=== PATIENT | female | born 1940 | race Caucasian/White ===

== ENCOUNTER 2021-05-31 16:35 | Inpatient (IN) | payer MEDICARE, BC ==
[~2021-05-31] VITALS: Ht 162.6 cm; Wt 70.3 kg
--- NOTE | 2021-05-31 16:36 | NUR ---
TO ER BED 9, BIBRA 99 from home c/o chest pressure started 1230pm today, non-radiating, non-provoke, pressure relieved from nitro upon arrival, aaox3, breathing even and non labored, connected to monitor
[2021-05-31] MEDS ORDERED: MULT-479 PO (17:34)
[2021-05-31] MEDS ORDERED: THIAZIDE (17:34)
[2021-05-31] MEDS ORDERED: COZAAR (17:34)
[2021-05-31] MEDS ORDERED: MULT-1160 PO (17:34)
[2021-05-31 17:38] LABS: BASOPHILS # (AUTO) 0.1 K/uL (0.0-0.2); BASOPHILS % (AUTO) 0.8 % (0.0-2.0); EOSINOPHILS % (AUTO) 15.7 % (0.0-6.0); HEMATOCRIT 40 % (33-45); HEMOGLOBIN 13.3 g/dL (11.5-14.8); LYMPHOCYTES # (AUTO) 1.3 K/uL (0.8-4.8); LYMPHOCYTES % (AUTO) 14.6 % (20.0-44.0); MEAN CORPUSCULAR HGB CONC 33 g/dl (31.0-36.0); MEAN CORPUSCULAR VOLUME 89 fL (82-100); MONOCYTES # (AUTO) 0.8 K/uL (0.1-1.30); MONOCYTES % (AUTO) 9.2 % (2.0-12.0); NEUTROPHILS # (AUTO) 5.5 K/uL (1.8-8.9); NEUTROPHILS % (AUTO) 59.7 % (43.0-81.0); PLATELET COUNT (AUTO) 285 K/uL (150-450); RED BLOOD CELL COUNT(AUTO) 4.46 MIL/uL (4.0-5.2); WHITE BLOOD COUNT (AUTO) 9.2 K/uL (4.3-11.0)
--- NOTE | 2021-05-31 17:52 | NUR ---
COVID SWAB DONE AND SENT TO LAB
[2021-05-31 17:57] LABS: CALCIUM, SERUM 9.5 mg/dL (8.5-10.1); CARBON DIOXIDE 31 mmol/L (21-32); CHLORIDE 102 mmol/L (98-107); CREATININE 1.3 mg/dL (0.6-1.3); GLUCOSE 102 mg/dL (74-106); POTASSIUM 3.5 mmol/L (3.5-5.1); SODIUM SERUM 137 mmol/L (136-145); UREA NITROGEN, BLOOD 25 mg/dL (7-18)
--- NOTE | 2021-05-31 19:37 | NUR ---
EPIC PANEL PAGED
[2021-05-31] MEDS ORDERED: hydrALAZINE HCL IV 20 MG VIAL IV PRN (20:00)
[2021-05-31] MEDS ORDERED: MORPHINE SULFATE INJ 2 MG/ML DISP.SYRIN IV PRN (20:00)
[2021-05-31] MEDS ORDERED: ONDANSETRON HCL/PF 4 MG/2 ML VIAL IVP PRN (20:00)
[2021-05-31] MEDS ORDERED: ACETAMINOPHEN 325 MG TABLET PO PRN (20:00)
--- NOTE | 2021-05-31 21:56 | NUR ---
REPORT GIVEN TO GORDY LEVI
--- NOTE | 2021-05-31 22:39 | NUR ---
PATIENT TRANSFERRED UNDER ACLS
[2021-05-31] MEDS: HEPARIN SODIUM, PORCINE 5000 UNITS/1 ML VIAL SQ SCH (23:14)
[2021-06-01] VITALS: BP 110/65
[2021-06-01 00:45] VITALS: BP 110/65
--- NOTE | 2021-06-01 00:49 | NUR ---
LIVE STUDY MANAGERPERSONNEL TECHNICIAN NOTES PATIENT BROUGHT UP IN THE UNIT @2249 VIA STRETCHER, ACCOMPANIED BY 1 ER PERSONNEL. PT. A/OX4 AND AMBULATES WITH STEADY GAIT. NO S/S OF APPARENT DISTRESS IN ROOM AIR. DENIES CHEST PAIN AT THIS TIME. TELE MONITOR READING SR 80 BPM WITH A LOT OF ARTIFACTS-- PATIENT IN USE OF CELLPHONE. PATIENT WISHES TO SPEAK WITH SS/SW AND DOCTOR REGARDING ADVANCED DIRECTIVE-- FULL CODE FOR NOW, PATIENT AWARE AND ACKNOWLEDGED, PER PATIENT SHE NEEDS MORE TIME TO THINK ABOUT IT AND IS IN AND OUT OF HOSPITAL BUT WAS NEVER ASKED ABOUT LIFE CHOICES. HEPARIN 5,000 UNIT SQ GIVEN. SPORTS BETTING MANAGER DR. SHIELDS TALKED WITH PATIENT AND EXPLAINED RISK AND BENEFITS TO PATIENT SINCE PATIENT ASKED AND PER PATIENT HAS NOT TAKEN ANY BLOOD THINNERS BEFORE. NO ASA GIVEN IN ER. PATIENT IS UP TO DATE WITH IMMUNIZATION INCLUDING MODERNA BOOSTER. PATIENT DENIES SMOKING AND QUIT LONG TIME AGO. OCCASIONALLY DRINKS WINE. BELONGINGS INVENTORIED AND CHECK WITH CORE SHAPER, SIGNED AND CHARTED. ALL NEEDS ATTENDED AT THIS TIME. R.HAND #20G AND L. AC #20G IN SALINE LOCK FOR NOW. STRONGLY ENCOURAGED WITH THE USE OF CALL LIGHT. V/S FOLLOWS: 110/65, 80 BPM, RR- 19, T- 98.7, AND SATURATION 96% IN ROOM AIR. WILL CONTINUE TO MONITOR AND FOLLOW THROUGH DOCTOR'S ORDERS.
[2021-06-01 04:34] VITALS: BP 95/46
[2021-06-01 06:15] LABS: BASOPHILS # (AUTO) 0.1 K/uL (0.0-0.2); BASOPHILS % (AUTO) 0.7 % (0.0-2.0); EOSINOPHILS % (AUTO) 21.1 % (0.0-6.0); HEMATOCRIT 40 % (33-45); HEMOGLOBIN 13.2 g/dL (11.5-14.8); LYMPHOCYTES # (AUTO) 1.3 K/uL (0.8-4.8); LYMPHOCYTES % (AUTO) 17.7 % (20.0-44.0); MEAN CORPUSCULAR HGB CONC 34 g/dl (31.0-36.0); MEAN CORPUSCULAR VOLUME 89 fL (82-100); MONOCYTES # (AUTO) 0.8 K/uL (0.1-1.30); MONOCYTES % (AUTO) 10.5 % (2.0-12.0); NEUTROPHILS # (AUTO) 3.6 K/uL (1.8-8.9); PLATELET COUNT (AUTO) 255 K/uL (150-450); RED BLOOD CELL COUNT(AUTO) 4.42 MIL/uL (4.0-5.2); WHITE BLOOD COUNT (AUTO) 7.2 K/uL (4.3-11.0)
[2021-06-01 06:18] LABS: ALBUMIN 2.9 g/dL (3.4-5.0); BILIRUBIN,TOTAL 0.5 mg/dL (0.2-1.0); CALCIUM, SERUM 9.3 mg/dL (8.5-10.1); CREATININE 1.2 mg/dL (0.6-1.3); MAGNESIUM 2.1 mg/dL (1.8-2.4); PHOSPHORUS 3.6 mg/dL (2.5-4.9); POTASSIUM 3.8 mmol/L (3.5-5.1); TOTAL PROTEIN, SERUM 6.6 g/dL (6.4-8.2)
--- NOTE | 2021-06-01 07:35 | NUR ---
ms rn received on bed, awake,alert,oriented x4,not in any form of distress, respiration even and unlabored,no sob noted, deneis pain at this time,all needs attended.
[2021-06-01 08:00] VITALS: BP_SYST 100; BP_SYST 138; BP_DIAS 59; BP_DIAS 74
[2021-06-01] MEDS ORDERED: TRIA1CAP20 PO (08:17)
[2021-06-01] MEDS ORDERED: LOSA50TA39 PO (08:17)
[2021-06-01 09:00] LABS: EOSINOPHILS % (MANUAL) 15 % (0-4); LYMPHOCYTES % (MANUAL) 13 % (16-48); MONOCYTES % (MANUAL) 12 % (0-11.0); NEUTROPHILS % (MANUAL) 60 (42-76)
[2021-06-01] MEDS ORDERED: MULTIVITAMIN/LUTEIN/MINERALS 1 TAB PO SCH (09:00)
[2021-06-01] MEDS ORDERED: Medication Not On Formulary EA (Multivits-Min/Iron/FA/Lutein (Centrum Silver Women Table PO SCH (09:00)
[2021-06-01] MEDS ORDERED: LOSARTAN POTASSIUM 50 MG TABLET PO SCH (09:00)
[2021-06-01] MEDS ORDERED: CARVEDILOL 3.125 MG TABLET PO SCH (09:00)
[2021-06-01] MEDS ORDERED: ASPIRIN 81 MG TAB.CHEW PO SCH (09:00)
[2021-06-01] MEDS ORDERED: ATORVASTATIN 10 MG TABLET PO SCH (09:00)
[2021-06-01] MEDS ORDERED: LOSARTAN POTASSIUM 25 MG TABLET PO SCH (09:00)
--- NOTE | 2021-06-01 09:00 | NUR ---
ms lynch breakfast served,due meds given tolerated well.
[2021-06-01 09:18] LABS: CHOLESTEROL 177 mg/dL (<200); HDL CHOLESTEROL 68 mg/dL (40-60); LDL 95 mg/dL (0-99); TRIGLYCERIDES 66 mg/dL (30-150)
[2021-06-01 10:17] VITALS: BP 138/74
[2021-06-01] MEDS: HEPARIN SODIUM, PORCINE 5000 UNITS/1 ML VIAL SQ SCH (10:20)
--- NOTE | 2021-06-01 11:00 | NUR ---
ms rn was seen by bethel, patient wants to go home, not to have lexiscan on thursday.
--- NOTE | 2021-06-01 12:00 | NUR ---
ms rn bethel ok to go home and do it outpatient.all needs attended.
[2021-06-01] MEDS ORDERED: ATOR10TA PO (13:20)
[2021-06-01] MEDS ORDERED: ASPI-1169 PO (13:20)
[2021-06-01] MEDS ORDERED: CARV3.122 PO (13:20)
--- NOTE | 2021-06-01 16:00 | NUR ---
ms rn patient went home, slate picker by a friend, all needs attended.
--- NOTE | 2021-06-03 11:40 | NUR ---
SS Note: SW received consult for advance directives inquiry. Pt. was discharged over the weekend, SW was not able to meet with pt.
== END 2021-06-01 17:29 | disposition home or self-care (01) | DRG 311 ==
LOC: ER 16:37 → TELE 21:47
PROVIDERS: ADMIT Internal Medicine; ATTEND Registered Nurse
DX: I24.9 Acute ischemic heart disease, unspecified (principal); I10 Essential (primary) hypertension; Z20.822 Contact with and (suspected) exposure to COVID-19; Z88.8 Allergy status to other drugs, medicaments and biological substances; Z91.041 Radiographic dye allergy status; Z79.82 Long term (current) use of aspirin; Z79.899 Other long term (current) drug therapy; F41.9 Anxiety disorder, unspecified; E78.5 Hyperlipidemia, unspecified; F43.9 Reaction to severe stress, unspecified; Z91.19 Patient's noncompliance with other medical treatment and regimen
CPT/HCPCS: 36415; 71045-TC; 80048-TC; 80053-TC; 80061-TC; 83735-TC; 83880; 84100-TC; 84484-TC; 85025-TC; 87081-TC; 93307-TC; C9803; G0378; J1644